=== PATIENT | female | born 1965 ===

== ENCOUNTER 2019-04-06 19:28 | Emergency (ER) | payer BC ==
--- NOTE | 2019-04-06 20:51 | RAD ---
Exam:Right ankle 3 views HISTORY: Fall. Pain. COMPARISON: None FINDINGS: Uncomplicated internal fixation hardware. No perihardware lucency. No acute fracture. IMPRESSION: No acute fracture.
== END 2019-04-06 21:50 | disposition home or self-care (01) ==
LOC: ERS 19:28
DX: M25.471 Effusion, right ankle (principal); F32.9 Major depressive disorder, single episode, unspecified